=== PATIENT | female | born 1990 | race Caucasian/White ===

== ENCOUNTER → 2018-02-06 | Outpatient (CLI) | payer MEDICAID ==
--- NOTE | 2018-02-06 09:59 | ECHOF ---
Referral Reason:R01.1 Cardiac mumur MEASUREMENTS -------- HEIGHT: 162.6 cm WEIGHT: 133.4 kg BP: IVSd: 1.2 cm (0.6 - 1.1) LVIDd: 4.5 cm (3.9 - 5.3) LVPWd: 0.9 cm (0.6 - 1.1) IVSs: 1.5 cm LVIDs: 3.1 cm LVPWs: 1.4 cm LA Diam: 3.4 cm (2.7 - 3.8) Ao Diam: 3.2 cm (2.0 - 3.7) AV Cusp: 2.3 cm (1.5 - 2.6) LA Diam: 4.0 cm (2.7 - 3.8) EPSS: 0.8 cm MV E Toni: 0.81 m/s MV DecT: 192 ms MV A Toni: 0.63 m/s MV E/A Ratio: 1.29 RAP: 5.00 mmHg RVSP: 36.69 mmHg MV EF SLOPE: 96.14 mm/s (70 - 150) MV EXCURSION: 1.67 cm (> 18.000) FINDINGS -------- Sinus rhythm. Morbid Obesity The left ventricular size is normal. There is borderline concentric left ventricular hypertrophy. Overall left ventricular systolic function is low-normal with, an EF between 50 - 55 %. The right ventricle is normal in size. The left atrial size is normal. The right atrial size is normal. The aortic valve is trileaflet, and appears structurally normal. No aortic stenosis or regurgitation. Mild mitral regurgitation is present. Mild tricuspid regurgitation present. There is mild pulmonary hypertension. The right ventricular systolic pressure, as measured by Doppler, is 36.69mmHg. Trace/mild (physiologic) pulmonic regurgitation. The aortic root size is normal. There is no pericardial effusion. CONCLUSIONS -------- 1. Morbid Obesity 2. The left ventricular size is normal. 3. There is borderline concentric left ventricular hypertrophy. 4. Overall left ventricular systolic function is low-normal with, an EF between 50 - 55 %. 5. The right ventricle is normal in size. 6. The left atrial size is normal. 7. The right atrial size is normal. 8. The aortic valve is trileaflet, and appears structurally normal. No aortic stenosis or regurgitati on. 9. Mild mitral regurgitation is present. 10. Mild tricuspid regurgitation present. 11. There is mild pulmonary hypertension. 12. The right ventricular systolic pressure, as measured by Doppler, is 36.69mmHg. 13. Trace/mild (physiologic) pulmonic regurgitation. 14. The aortic root size is normal. 15. There is no pericardial effusion. SWING MANAGER: Carisa Varela RDCS
== END ==
LOC: RADECHMAIN 08:25
PROVIDERS: ATTEND Family Medicine
DX: I08.1 Rheumatic disorders of both mitral and tricuspid valves (principal); E66.01 Morbid (severe) obesity due to excess calories; I27.20 Pulmonary hypertension, unspecified
CPT/HCPCS: 93306

== ENCOUNTER → 2021-02-08 | Outpatient (CLI) | payer MEDICAID ==
[2021-02-08 15:27] LABS: Anisocytosis Slight; Basophils % (A) 1 %; Eosinophils # (A) 0.3 k/uL (0-0.7); Eosinophils % (A) 5 %; HCT 30.6 % (34.0-46.0); HGB 9.3 gm/dL (11.4-16.0); Hypochromasia Moderate; Lymphocytes # (A) 1.8 k/uL (1.0-4.8); Lymphocytes % (A) 28 %; MCH 23.8 pg (25.0-35.0); MCHC 30.3 g/dL (31.0-37.0); MCV 78.5 fL (80.0-100.0); Mean Platelet Volume 7.8; Microcytosis Slight; Monocytes # (A) 0.4 k/uL (0-1.0); Monocytes % (A) 6 %; Neutrophils # (A) 3.8 k/uL (1.3-7.7); Neutrophils % (A) 59 %; Platelet Count 427 k/uL (150-450); RBC 3.91 m/uL (3.80-5.40); RDW 16.2 % (11.5-15.5); WBC 6.4 k/uL (3.8-10.6)
== END | disposition home or self-care (01) ==
LOC: LABPAT 14:58
PROVIDERS: ATTEND Obstetrics & Gynecology Obstetrics
DX: Z01.812 Encounter for preprocedural laboratory examination (principal); N93.9 Abnormal uterine and vaginal bleeding, unspecified; D64.9 Anemia, unspecified; I10 Essential (primary) hypertension
CPT/HCPCS: 36415; 85025; 93005

== ENCOUNTER 2021-02-12 09:48 | Day surgery (SDC) | payer MEDICAID ==
[2021-02-09 09:59] VITALS: BMI 43.9
[~2021-02-12 09:48] MED LIST: DEXAMETHASONE SOD PHOSPHATE 4 MG/ML 1 ML VIAL IV ONE; LACTATED RINGERS 1,000 ML IV SCH; ONDANSETRON 4 MG/2 ML VIAL IVP ONE; Pre Op ABX Message 1 EACH MISC MISCELLANE ONE
[2021-02-12] MEDS ORDERED: ONDANSETRON 4 MG/2 ML VIAL ONE (10:40)
[2021-02-12] MEDS ORDERED: LIDOCAINE 1% (10MG/ML) FOR IV START INTRADERMA ONE (10:41)
[2021-02-12] MEDS ORDERED: PROPOFOL 10 MG/ML 20 ML VIAL IV ONE (12:14)
[2021-02-12] MEDS ORDERED: LIDOCAINE 1% INJ 10MG/ML (20 ML MDV) ONE (12:14)
[2021-02-12] MEDS ORDERED: fentaNYL (PF) 50 MCG/ML 2 ML AMP ONE (12:14)
[2021-02-12] MEDS ORDERED: SUCCINYLCHOLINE CHLORIDE 100 MG/5 ML SYR IV ONE (12:14)
[2021-02-12] MEDS ORDERED: KETOROLAC 15 MG/ML 1 ML VIAL ONE (12:14)
[2021-02-12] MEDS ORDERED: MIDAZOLAM 2 MG/2 ML VIAL ONE (12:14)
[2021-02-12] MEDS ORDERED: SILVER NITRATE APPLICATOR 1 EACH STICK..EA. TOPICAL ONE (12:42)
[2021-02-12 13:02] VITALS: TEMP 98
--- NOTE | 2021-02-12 13:10 | P.OP ---
Date of Procedure: 02/12/21 Preoperative Diagnosis: Abnormal uterine bleeding, anemia Postoperative Diagnosis: Same Procedure(s) Performed: Hysteroscopy, dilation and curettage Anesthesia: JOSH Surgeon: Bonnie Ivory Estimated Blood Loss (ml): 10 IV fluids (ml): 400 Urine output (ml): 100 Pathology: other (Endometrial curettings) Condition: stable Disposition: PACU Indications for Procedure: Irregular menstrual bleeding, heavy at times with large clots for the last 20+ days Operative Findings: Proliferative endometrium Description of Procedure: Patient was seen in the preoperative area and informed consent was obtained. Patient was taken back to the operating suite where general anesthesia was obtained without difficulty by the anesthesia department. I [place] catheter was then used to drain the bladder clear yellow urine. A weighted speculum was placed in the posterior vaginal vault the interval of the cervix was visualized and grasped with a single-tooth tenaculum. Endocervical canal was then dilated, and hysteroscope was placed through the cervix and toward the endometrial cavity. A proliferative endometrium was noted. Pictures were taken and the hysteroscope was removed. A sharp curettage was then performed gently. Moderate amount of endometrial curettings was obtained. The single-tooth tenaculum was taken off of the anterior lip of the cervix bleeding was appreciated therefore silver nitrate was applied on the single-tooth tenaculum site, hemostasis was then appreciated. Minimal bleeding was noted from the cervical os. All instruments removed from the patient's vaginal vault. Specimen was sent to pathology for analysis All counts were noted be correct 2 within the procedure. Patient tolerated procedure well was taken the recovery room.
[2021-02-12] MEDS: HYDROmorphone 0.5 MG/0.5 ML SYRINGE IVP PRN ×3 (13:11→13:29)
[2021-02-12 13:43] VITALS: RESP 14
[2021-02-12] MEDS ORDERED: LACTATED RINGERS 1,000 ML IV ONE (13:44)
[2021-02-12] MEDS ORDERED: ACETAMINOPHEN TAB 500 MG TAB PO ONE (14:44)
[2021-02-12] MEDS ORDERED: ACETAMINOPHEN TAB 500 MG TAB ONE (14:46)
[2021-02-12 14:49] VITALS: BP 103/69; PULSE 88
== END 2021-02-12 15:14 | disposition home or self-care (01) ==
LOC: OR 09:48
PROVIDERS: ATTEND Obstetrics & Gynecology Obstetrics
DX: N93.9 Abnormal uterine and vaginal bleeding, unspecified (principal); N92.0 Excessive and frequent menstruation with regular cycle; N72 Inflammatory disease of cervix uteri; I10 Essential (primary) hypertension; G47.33 Obstructive sleep apnea (adult) (pediatric); E11.9 Type 2 diabetes mellitus without complications; Z82.3 Family history of stroke; Z98.890 Other specified postprocedural states; Z82.49 Family history of ischemic heart disease and other diseases of the circulatory system; Z80.51 Family history of malignant neoplasm of kidney; Z79.84 Long term (current) use of oral hypoglycemic drugs; Z79.899 Other long term (current) drug therapy
CPT/HCPCS: 81025; 88305; 58558; J2250; J1100; J2405; J2001; J3010; J1885; J0330; J2704; J1170